=== PATIENT | female | born 1970 ===

== ENCOUNTER 2016-08-17 13:32 | Emergency (ER) | payer BC ==
[2016-08-17] MEDS ORDERED: Ondansetron INJ* 2 MG/ML VIAL IV ONE (16:05)
[2016-08-17] MEDS ORDERED: Ketorolac INJ* 30 MG/ML 1 ML VIAL IV ONE (16:05)
[2016-08-17] MEDS ORDERED: NS 0.9% 1000 ML* 1,000 ML IV ONE (16:05)
[2016-08-17] MEDS ORDERED: diPHENhydraMINE IV* 25 MG in NS 0.9% 50 ML* 50 ML IVPB ONE (16:05)
[2016-08-17 16:13] VITALS: BP 143/87
[2016-08-17] MEDS ORDERED: diPHENhydraMINE IV* 50 MG/ML 1 ml VIAL (BENADRYL) ONE (16:29)
[2016-08-17 18:45] LABS: Hematocrit 43 % (35-47); Hemoglobin 14.1 g/dl (12.0-16.0); Mean Corpuscular HGB Conc 33 g/dl (31-36); Mean Corpuscular Hemoglobin 30 pg (27-31); Mean Corpuscular Volume 91 fL (80-97); Mean Platelet Volume 9 um3 (7.4-10.4); Red Blood Count 4.73 10^6/ul (4.0-5.4); Red Cell Distribution Width 14 % (10.5-15); White Blood Count 8.6 10^3/ul (3.5-10.8)
[2016-08-17 18:55] LABS: BUN/Creatinine Ratio 15.9 (8-20); Calcium 9.6 mg/dL (8.6-10.3); EGFR African American 117.3 (>60); EGFR Non-African American 91.2 (>60)
[2016-08-17 19:06] LABS: TSH (Thyroid Stimulating Horm) 1.41 mcIU/mL (0.34-5.60)
--- NOTE | 2016-08-17 20:29 | UC ---
Isidoro Monk Adam, scribed for YehudaAnna, DO on 08/17/16 at 1500 . General HPI - HPI Summary HPI Summary: Pt is a 46 year old female presenting a BUTT that set on at approximately 13:00 today. She states that it was similar to BUTT's that she gets occasionally. It started in her neck and then radiated throughout her head, which is also typical. She also c/o nausea and abdominal pain. She states that her symptoms were aggravated by the heat of the sunlight coming into the room at work, causing her to feel hot and lightheaded. She felt "woozy" like she was going to fall over but denies room-spinning sensation. She also felt like she had to focus on her breathing but felt that she was getting adequate oxygen. She did not lose consciousness. She has a Hx of migraines but states that this BUTT was not as severe as a typical migraine. She denies photophobia(not a usual migraine sx for this pt), CP, fever, chills, diaphoresis, congestion, diarrhea, blood in stool, myalgia, arthralgia, rashes, and pain in jaw/neck/arm. Pt still has a BUTT and some lightheadedness at this time. Her nausea is mostly resolved. She reports that she yawned at the time when her lightheadedness was at its worst. She denies tobacco use and any PMHx. FMHx of hypotension, lupus, ALS - pt was test by pcp and not found to have it.. - History of Current Complaint Chief Complaint: UCDizziness Stated Complaint: HEADACHE STOMACH ACHE DIZZY Hx Obtained From: Patient Onset/Duration: Gradual Onset, Lasting Hours, Still Present Onset Severity: Moderate Current Severity: Mild Associated Signs & Symptoms: Positive: Abdominal Pain, Dizziness - Lightheadedness, Headache, Nausea. Negative: Confusion, Cough, Chest Pain, Decreased Responsiveness, Diaphoresis, Fever, Recent Medication Changes, SOB, Vomiting, Weakness - Allergy/Home Medications Allergies/Adverse Reactions: Allergies Allergy/AdvReac Type Severity Reaction Status Date / Time No Known Allergies Allergy Verified 08/17/16 13:58 PMH/Surg Hx/FS Hx/Imm Hx Previously Healthy: Yes Endocrine History Of: Denies: Diabetes, Thyroid Disease Cardiovascular History Of: Denies: Cardiac Disorders, Hypertension Respiratory History Of: Denies: COPD, Asthma GI/ History Of: Denies: Ulcer Cancer History Of: Denies: Breast Cancer - Surgical History Surgery Procedure, Year, and Place: tubal ligation - Family History Known Family History: Positive: Other - Hypotension, lupus, ALS Negative: Cardiac Disease, Hypertension - Social History Occupation: Employed Full-time Lives: With Family - Significant other Alcohol Use: Weekly Substance Use Type: None Smoking Status (MU): Never Smoked Tobacco - Immunization History Most Recent Influenza Vaccination: never Review of Systems Constitutional: Negative Skin: Negative Eyes: Negative ENT: Negative Respiratory: Negative Cardiovascular: Negative Gastrointestinal: Other - Nausea Genitourinary: Negative Motor: Negative Neurovascular: Negative Musculoskeletal: Negative Neurological: Headache, Other - Lightheadedness Psychological: Negative All Other Systems Reviewed And Are Negative: Yes Physical Exam Triage Information Reviewed: Yes Appearance: Well-Appearing, No Pain Distress, Well-Nourished Vital Signs: Initial Vital Signs Temp 98.5 F 08/17/16 13:49 Pulse 83 08/17/16 13:49 Resp 16 08/17/16 13:49 BP 135/99 08/17/16 13:49 Pulse Ox 100 08/17/16 13:49 Eyes: Positive: Conjunctiva Clear. Negative: Discharge ENT: Positive: Hearing grossly normal. Negative: Muffled/hoarse voice Neck exam: Normal Neck: Positive: Supple Respiratory: Positive: Lungs clear, Normal breath sounds, No respiratory distress, No accessory muscle use Cardiovascular: Positive: RRR, No Murmur Abdomen Description: Positive: Nontender, Soft. Negative: CVA Tenderness (R), CVA Tenderness (L), Distended, Guarding Bowel Sounds: Positive: Present Musculoskeletal Exam: Normal Neurological: Positive: Alert, Muscle Tone Normal, Other: - aox4, strength, sensation and reflexes intact bl, cn 2-12 intact, no cerebellar signs Psychological: Positive: Age Appropriate Behavior Skin Exam: Normal Skin: Positive: Other - Warm, dry, normal color Diagnostics - EKG Cardiac Rate: NL - 71 BPM @ 13:52 Cardiac Rhythm: Sinus: Normal Course/Dx - Differential Dx - Multi-Symptom Provider Diagnoses: Migraine, vasovagal episode Discharge - Discharge Plan Condition: Stable Disposition: HOME Patient Education Materials: Migraine Headache (ED), Syncope (ED) Referrals: No Primary Care Phys,NOPCP [Primary Care Provider] - () Additional Instructions: YOUR HISTORY DOES NOT REVEAL ANY RISK FACTORS. YOUR PHYSICAL EXAM AND EKG DID NOT REVEAL ANY ABNORMALITIES. WE HAVE DONE SOME LAB WORK. YOU WILL BE CALLED WITH ABNORMALITIES. STAY HYDRATED. FOLLOW-UP CARE: You should establish with a private physician for follow-up care. If you are unable to get a timely appointment, or if you are worsening, call us or return for re-evaluation. An additional resource available to assist in finding the appropriate physician for your health care needs is the [facility]. You may contact them by calling [phone]. The documentation as recorded by the Isidoro steven Adam accurately reflects the service I personally performed and the decisions made by me, Anna Blackman DO.
== END 2016-08-17 17:54 | disposition home or self-care (01) ==
LOC: UCEAST 13:32
DX: G43.909 Migraine, unspecified, not intractable, without status migrainosus (principal); R55 Syncope and collapse; R11.0 Nausea; Z32.02 Encounter for pregnancy test, result negative
CPT/HCPCS: 36415; 80048; 81025; 84443; 85025; 93005; 96360; 96361; 96365; 96374; 96375; 99212; G0463; J1200; J1885; J2405